=== PATIENT | male | born 1995 | race Caucasian/White ===

== ENCOUNTER 2019-06-27 11:52 | Emergency (ER) | payer OTHER, SELFPAY ==
[2019-06-27 12:02] VITALS: BP 118/68; PULSE 77; RESP 16; TEMP 36.8; O2SAT 98
[2019-06-27] MEDS: Tetracaine 0.5% 4 ML BTL (12:10)
--- NOTE | 2019-06-27 12:11 | W.ED.GENAD ---
Discharge Plan Disposition Patient Disposition: HOME Condition: Stable Discharge Details Chief Complaint: EyeProblem Clinical Impression: Acute foreign body of right eye, Abrasion of cornea, right Primary Care Provider: None,None ED Provider: Felix Reid Home Meds and New Rx's Prescriptions: New erythromycin 5 mg/gram (0.5 %) ointment 0.5 inch OP TID 7 Days Qty: 3.5 RF: 0 Discharge Instructions Instructions: Corneal Abrasion (ED) Additional Instructions: if pain continues on Saturday call [facility] for an appointment [phone] if you have severe worsening of pain return to the emergency department Medical Decision Making 24 yo males comes in with right eye discomfort since last night. Doesn't remember any known trauma or foreignb odies but continued to have discomfort and eye tearing since so came here. no periorbital swelling, redness, perrl,eomi without pain and no deep eye pain. He has no significant conjunctival injection, no d/c. He did have a small 1mm foreign body when upper eyelid was flipped and I removed with q tip. He also has a corneal abrasion that is 1mm on the conjunctiva at 9 oclock on flourescein staining, no hyphema or iritis. Will start on erythromycin ointment and advised f/u with [facility] if not better by Saturday Differential Diagnosis corneal abrasion foreign body HPI General Mode of arrival: ambulatory. Date/Time Provider Initiated Documentation: 06/27/19 11:55. Limitations to Documentation: no limitations. Information obtained by: patient. History of Present Illness 24 year old M presents to the emergency department with the chief complaint of right eye discomfort, described as moderate, Quality is described as aching, Patient started experiencing this day(s) (1) and it has been constant. No relieving factors improve symptom(s), No exacerbating factors reported . Related Data Home Medications Medication Instructions Recorded Confirmed erythromycin 0.5 inch OP TID 7 Days #3.5 gm 06/27/19 Previous Rx's Medication Instructions Recorded erythromycin 0.5 inch OP TID 7 Days #3.5 gm 06/27/19 Allergies Allergy/AdvReac Type Severity Reaction Status Date / Time Penicillins Allergy Intermediate Hives Unverified 06/27/19 12:04 General Stated Complaint: EyeProblem WILLIAM: 4 Review of Systems Review of Systems All systems reviewed & are unremarkable except as noted in HPI and below Constitutional Denies chills, Denies fever(s) and Denies weakness Cardiovascular Denies chest pain and Denies dyspnea Respiratory Denies cough and Denies dyspnea Gastrointestinal Denies abdominal pain, Denies nausea and Denies vomiting Integumentary/Breasts Denies rash Neurologic Denies weakness PFSH Social History Smoking/Tobacco Use Status: Former Tobacco Use Alcohol Intake: never Drug use: Never Substance use type: does not use Exam Const General: no acute distress Orientation: alert HENMT Head: normal to inspection Ears: external ears normal General nose exam: external nose normal Mouth: moist mucous membranes Eyes Pupils: PERRL Neck Neck: normal visual inspection Resp Effort & Inspection: normal respiratory effort and able to speak in complete sentences Cardio Rate: regular rate Skin General skin exam: no rashes or lesions noted Neuro General: alert and oriented x3 Extrem General: normal to inspection Psych Mental Status: mental status grossly normal Course Vital Signs Temperature 36.8 C 06/27/19 12:02 Pulse 77 06/27/19 12:02 Respiratory Rate 16 06/27/19 12:02 Blood Pressure 118/68 06/27/19 12:02 Pulse Oximetry 98 06/27/19 12:02 Temperature 36.8 C 06/27/19 12:02 Temperature Source Skin 06/27/19 12:02 Pulse 77 06/27/19 12:02 Respiratory Rate 16 06/27/19 12:02 Respiratory Effort Non-Labored 06/27/19 12:02 Blood Pressure 118/68 06/27/19 12:02 Blood Pressure Position Sitting 06/27/19 12:02 Pulse Oximetry 98 06/27/19 12:02 Oxygen Delivery Method Room Air 06/27/19 12:02 Oxygen Flow Rate 0 06/27/19 12:02 Pain Level 6 06/27/19 12:02
[2019-06-27 12:26] VITALS: BP 122/64; PULSE 81; RESP 16; O2SAT 98
[2019-06-27] MEDS: Balanced Salt Solution 15 ML BTL (12:40)
[2019-06-27] MEDS: Fluorescein STRIPS 100/BOX 1 MG (12:40)
== END 2019-06-27 12:29 | disposition home or self-care (01) ==
PROVIDERS: Emergency Provider Emergency Medicine
DX: T15.01XA Foreign body in cornea, right eye, initial encounter (principal); S05.01XA Injury of conjunctiva and corneal abrasion without foreign body, right eye, initial encounter
CPT/HCPCS: 65220; 99283; 99281

== ENCOUNTER 2021-03-19 16:16 | Emergency (ER) | payer OTHER, SELFPAY ==
[2021-03-19] VITALS (8 sets, daily range): BP systolic 113–119; BP diastolic 60–62; PULSE 70–88; RESP 16–29; TEMP 36.6; O2SAT 97–99
--- NOTE | 2021-03-19 16:15 | RT.EKG_ITS ---
APPROVED REPORT Exam: Resting ECG Patient Location: E HR:82 bpm ECG Measurements Heart Rate 82 AXIS SC 146 P 51 QRSd 89 QRS 60 QT 363 T 47 QTc 423 Conclusion Sinus rhythm...normal P axis, V-rate 60- 99
--- NOTE | 2021-03-19 16:30 | DI.CT_ITS ---
Exam(s) CT HEAD WO EXAM: CT HEAD WO CLINICAL HISTORY: Hx of Right sided weakness,. TECHNIQUE: Imaging Protocol: Axial computed tomography images with coronal and sagittal reformatted images were created and reviewed COMPARISON: No exams were available for comparison FINDINGS: Ventricles and Extra axial spaces: Normal in size and morphology for the patient's age. Hemorrhage: None. Cerebral parenchyma: Normal. Midline shift: None. Brainstem/Cerebellum: Normal. Calvarium: Normal. Visualized Paranasal sinuses/Mastoids: Clear. Soft Tissues: Unremarkable. IMPRESSION: No acute intracranial process. RADIATION DOSE DELIVERED: 675.03mGy.cm Total DLP DATA REPOSITORY: All CT scans at this facility are submitted to the National Radiology Data Registry (NRDR) Dose Index Registry (DIR) with the [employer] (ACR). RADIATION OPTIMIZATION: All CT scans at this facility use at least one of these dose optimization te chniques: automated exposure control; mA and/or kV adjustment per patient size (includes targeted exa ms where dose is matched to clinical indication); or iterative reconstruction.
--- NOTE | 2021-03-19 16:32 | W.ED.GENAD ---
Discharge Plan Disposition Patient Disposition: HOME Condition: Stable Discharge Details Clinical Impression: Alcohol intoxication, Weakness Primary Care Provider: None,None ED Provider: Zabrina Rosas Home Meds and New Rx's Prescriptions: No Action No Known Home Meds RF: 0 Discharge Instructions Instructions: Alcohol Intoxication (ED), Weakness (ED) Additional Instructions: Follow up with primary care provider in 3-5 days. Return to ED sooner if any worsening or concerns. Increase oral fluids. Try to abstain from your alcohol use. Stay with someone that can monitor mental status. Please return to the ED for any recurrent episodes of one-sided weakness, slurred speech or any concerns. Referrals: Corie Nguyen [Emergency Nurse] - Discharge Data Discharge Date/Time-TO BE ENTERED AT DEPARTURE: 03/19/21 17:37 Medical Decision Making 64-cnbt-liy-year-old presents to the ER chief complaint of right-sided weakness slurred speech which occurred approximately 2 hours ago while sitting on side of the bed. He states that he was having a conversation when he noticed his right side of his body a week slurred speech and he slid down to the floor. He denies hitting his head no headache no back pain no neck pain. He does endorse alcohol today including beer and liquor he also he also endorses marijuana. No other illicit drug. He is alert and oriented x4 upon arrival he is complaining of some left-sided chest pain. No focal neuro deficits noted pupils are PERRLA 5 mm bilaterally sluggish to light light. Middleware Solutions Architect are equal bilaterally no arm drift no facial droop. At this time work-up ordered including CBC, CMP, urinalysis, UDS, ethyl alcohol level, CT head without contrast. TECHNIQUE: Imaging protocol: Computed tomography of the head without contrast. COMPARISON: No relevant prior studies available. FINDINGS: Brain: Normal. No hemorrhage. Unremarkable white matter. No mass effect. Cerebral ventricles: The ventricular system is normal in size and distribution. There is a normalvariant cavum septum pellucidum. Bones/joints: Unremarkable. No acute fracture. Paranasal sinuses: Visualized sinuses are unremarkable. No fluid levels. Mastoid air cells: Visualized mastoid air cells are well aerated. Soft tissues: Unremarkable. IMPRESSION: Negative for acute intracranial pathology. Thank you for allowing us to participate in the care of your patient. Dictated and Authenticated by: Meliton Spicer MD CBC largely within normal limits no leukocytosis, CMP also largely within normal limits. alcohol level 244.5. UDS positive for THC no other illicit drugs. Discussed CT results with patient and family who verbalized understanding. Patient remained alert and oriented x4 with no focal neuro deficits upon reevaluation. At this time I do believe that symptoms are caused from the excessive alcohol use. Informed by staffing mgr that patient was also drinking heavily yesterday. I did encourage him to abstain from alcohol use for the rest of the day and tomorrow and to stay with somebody to monitor his mental status. Discuss strict return instructions instructed to return if any other episodes or concerns. Patient and family verbalized understanding at this time. This text was generated using [email or web address] system, please disregard any oddities of phrase or misspellings. HPI General Mode of arrival: ambulatory. Date/Time Provider Initiated Documentation: 03/19/21 16:17. Limitations to Documentation: altered mental status (Alcohol intoxication). Information obtained by: patient and family (Mom). HPI Narrative: 20-fexn-hls-year-old presents to the ER chief complaint of right-sided weakness slurred speech which occurred approximately 2 hours ago while sitting on side of the bed. He states that he was having a conversation when he noticed his right side of his body a week slurred speech and he slid down to the floor. He denies hitting his head no headache no back pain no neck pain. He does endorse alcohol today including beer and liquor he also he also endorses marijuana. No other illicit drug. He is alert and oriented x4 upon arrival he is complaining of some left-sided chest pain. No focal neuro deficits noted pupils are PERRLA 5 mm bilaterally sluggish to light light. Middleware Solutions Architect are equal bilaterally no arm drift no facial droop. Related Data Home Medications Medication Instructions Recorded Confirmed Unknown [No Known Home Meds] 03/19/21 03/19/21 Allergies Allergy/AdvReac Type Severity Reaction Status Date / Time Penicillins Allergy Intermediate Hives Unverified 03/19/21 16:30 General Stated Complaint: CVA/TIA WILLIAM: 2 Review of Systems Narrative: Constitutional: Negative for weight loss, alert and oriented, well groomed, normal body habitus, appears comfortable. Patient does appear intoxicated. HEENT: Denies headaches, blurry vision, nasal discharge, sore throat, trouble swallowing. Chest: Denies palpitations, irregular rhythm, hypertension. Positive left-sided chest pain. Respiratory: Denies Shortness of breath, cough, hemoptysis. GI: Denies abdominal pain, nausea, vomiting, diarrhea, constipation. : Denies dysuria, hematuria, flank pain, rectal bleeding. Neuro: Denies dizziness, blurry vision, syncope, headache or facial numbness. Reports right-sided weakness slurred speech approximately 2 hours ago which has since somewhat resolved. Hematologic: Denies easy bruising, intolerance to heat or cold, hair loss. [facility] Social History Smoking/Tobacco Use Status: Current every day Tobacco Type: cigarettes Smoking risk assessment performed?: Yes Alcohol Intake: current Alcohol Intake frequency: a few times a week Alcohol type: beer and hard liquor Drug use: Occasionally Substance use type: does not use and marijuana Exam Narrative Exam Narrative: Constitutional: Alert and oriented x3. Appears stated age. Normal body habitus. Head: Normocephalic, no trauma. Eyes: Pupils PERRLA, pupils 5 mm bilaterally sluggish, Red reflex noted, EOM's intact. Slight vertical nystagmus. Eyelids symmetrical without lesions, discharge, or swelling. ENT: Bilateral TM's WNL, no hemotympanum bilaterally, external ear normal to inspection, no mastoid TTP, swelling, or erythema, Nasal turbinates WNL, no nasal discharge. Normal dentition, Posterior pharynx WNL, no exudate. Chest: RRR, Normal S1, S2, distal pulses intact. Resp: Lungs clear to auscultation bilaterally, no wheezes, rales, or rhonchi. Abdomen: Soft, nondistended nontender to palpation all 4 quadrants. Musculoskeletal: Unable to assess gait, 5/5 strength to all four extremities. Skin: No suspicious rashes or lesions. Capillary refill less than 2 sec. Neurologic: Cranial nerves II-XII intact. Alert and oriented x 3. No facial droop, slight slurred speech. Intoxicated, shade matcher are equal bilaterally no pronator drift. Intact dorsal pedal flexion and extension. Hematologic/Lymphatic: No ecchymosis, no lymphadenopathy. Course Vital Signs Vital signs: Vital Signs Temperature 36.6 C 03/19/21 16:22 Pulse 82 03/19/21 16:22 Respiratory Rate 16 03/19/21 16:22 Blood Pressure 119/60 03/19/21 16:22 Pulse Oximetry 99 03/19/21 16:22 Temperature 36.6 C 03/19/21 16:22 Temperature Source Skin 03/19/21 16:22 Pulse 82 03/19/21 16:22 Respiratory Rate 16 03/19/21 16:22 Respiratory Effort Non-Labored 03/19/21 16:22 Blood Pressure 119/60 03/19/21 16:22 Blood Pressure Position Supine 03/19/21 16:22 Pulse Oximetry 99 03/19/21 16:22 Pain Level 0 03/19/21 16:22
[2021-03-19 16:40] LABS: Abs Immature Grans 0.04 10^3/uL (0.0-0.06); Absolute Basophil Count 0.05 10^3/uL (0.0-0.2); Absolute Eosinophil Count 0.12 10^3/uL (0.0-0.7); Absolute Lymphocyte Count 3.01 10^3/uL (1.2-3.4); Absolute Monocyte Count 0.51 10^3/uL (0.1-0.8); Absolute Neutrophil Count 4.65 10^3/uL (1.2-6.7); Basophils % 0.6; Eosinophils % 1.4; HCT 44.1 % (40.0-50.0); HGB 14.8 g/dL (13.5-17.5); Immature Grans % 0.5; Lymphocytes % 35.9; MCHC 33.6 % (32.0-36.0); MCV 89.5 fL (80-95); Monocytes % 6.1; Neutrophils % 55.5; Nucleated RBC 0 %; Platelet Count 334 10^3/uL (130-400); RBC 4.93 10^6/uL (4.36-5.78); RDW 11.7 % (11.8-14.1); WBC 8.38 10^3/uL (4.4-10.8)
[2021-03-19] MEDS: Normal Saline 1,000 ML 1000 ML IV (16:43)
[2021-03-19 16:50] LABS: Prothrombin Time 9.9 sec (9.3-11.0)
[2021-03-19 16:54] LABS: ALT 31 U/L (16-63); AST 18 U/L (15-37); Albumin 4.2 g/dL (3.4-5.0); Alkaline Phosphatase 82 U/L (46-116); Anion Gap 9.9 mmol/L (3-11); BUN 13 mg/dL (7-18); Bilirubin, Total 0.3 mg/dL (0.2-1.0); CO2 29.1 mmol/L (21.0-32.0); CREATININE 1.1 mg/dL (0.70-1.30); Calcium 8.8 mg/dL (8.5-10.1); Chloride 105 mmol/L (98-107); ETHANOL BLOOD 244.5 mg/dL (<3); Glucose 91 mg/dL (74-106); Magnesium 2.1 mg/dL (1.8-2.4); Potassium 3.9 mmol/L (3.5-5.1); Sodium 144 mmol/L (136-145); Total Protein 8.1 g/dL (6.4-8.2)
[2021-03-19 16:55] LABS: Troponin I < 0.05 ng/mL (<0.06)
--- NOTE | 2021-03-19 16:58 | DI.VRAD_ITS ---
PROCEDURE INFORMATION: Exam: CT Head Without Contrast Exam date and time: 03/19/2021 4:32 PM Age: 25 years old Clinical indication: Weakness, extremity; Right TECHNIQUE: Imaging protocol: Computed tomography of the head without contrast. COMPARISON: No relevant prior studies available. FINDINGS: Brain: Normal. No hemorrhage. Unremarkable white matter. No mass effect. Cerebral ventricles: The ventricular system is normal in size and distribution. There is a normal-variant cavum septum pellucidum. Bones/joints: Unremarkable. No acute fracture. Paranasal sinuses: Visualized sinuses are unremarkable. No fluid levels. Mastoid air cells: Visualized mastoid air cells are well aerated. Soft tissues: Unremarkable. IMPRESSION: Negative for acute intracranial pathology. Dictated and Authenticated by: Meliton Hays MD. Ordering:KHAI Gerber MD
[2021-03-19 17:00] LABS: Bilirubin Negative (Negative); Blood Negative (Negative); Clarity Clear (Clear); Glucose Negative (Negative); Ketones Negative (Negative); Leukocyte Esterase Negative (Negative); Nitrite Negative (Negative); Urobilinogen 0.2 EU/dL (Up TO 0.2); pH 5.5 (5-8)
[2021-03-19 17:11] LABS: *AMPHETAMINES SCREEN URINE Negative (Negative); *BARBITURATES SCREEN URINE Negative (Negative); *BENZODIAZEPINES SCREEN URINE Negative (Negative); Cannabinoids THC Positive (Negative); Cocaine Screen,Urine Negative (Negative); METHADONE URINE SCREEN Negative (Negative); OPIATES URINE SCREEN Negative (Negative)
[2021-03-19 17:12] LABS: Tricyclic Antidepressants Negative (Negative)
== END 2021-03-19 17:37 | disposition home or self-care (01) ==
PROVIDERS: Emergency Provider Registered Nurse Emergency
DX: F10.120 Alcohol abuse with intoxication, uncomplicated (principal); Y90.8 Blood alcohol level of 240 mg/100 ml or more; R53.1 Weakness; R47.81 Slurred speech
CPT/HCPCS: 36415; 36416; 80053; 80307; 82962; 93005; 96360; 99285; 70450; 80320; 81003; 83735; 84484; 85025; 85610; 93010; 99284

== ENCOUNTER 2021-03-28 17:31 | Outpatient (REF) | payer OTHER, SELFPAY ==
[2021-03-29 10:53] LABS: HIV-1/2 Ag & Ab Screen Negative (Negative)
[2021-03-29 11:14] LABS: Hepatitis C Ab w Rflx HCV PCR Negative (Negative)
[2021-03-29 11:56] LABS: Syphilis Serology (RPR) Negative (Negative)
[2021-03-29 15:01] LABS: Chlamydia Result Negative (Negative); GC Result Negative (Negative)
== END 2021-03-28 17:32 | disposition home or self-care (01) ==
LOC: NCHCN 17:31
PROVIDERS: Visit Provider Physician Assistant
DX: Z11.3 Encounter for screening for infections with a predominantly sexual mode of transmission (principal); Z11.4 Encounter for screening for human immunodeficiency virus [HIV]; Z11.59 Encounter for screening for other viral diseases
CPT/HCPCS: 86803; 87389; 87491; 87591; 86592

== ENCOUNTER 2022-06-30 17:35 | Emergency (ER) | payer SELFPAY ==
[2022-06-30] VITALS (8 sets, daily range): BP systolic 160–186; BP diastolic 89–105; PULSE 115–130; RESP 11–26; TEMP 37.2–37.3; O2SAT 95–98
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
[2022-06-30] MEDS: Normal Saline 1,000 ML 1000 ML IV (17:30)
[2022-06-30] MEDS: Etomidate 20 MG/10 ML VIAL IVP (17:33)
[2022-06-30] MEDS: Succinylcholine 200 MG/10 ML VIAL 20 MG IVP (17:33)
[2022-06-30] MEDS: PROPOFOL 1,000 MG/100 ML BTL 4 MG (17:35)
[2022-06-30] MEDS: Propofol 200 MG/20 ML VIAL IVP (17:35)
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
[2022-06-30 17:53] LABS: Abs Immature Grans 0.09 10^3/uL (0.0-0.06); HCT 42.2 % (40.0-50.0); HGB 14.7 g/dL (13.5-17.5); MCH 30.7 pg (27.0-33.0); MCHC 34.8 % (32.0-36.0); MCV 88 fL (80-95); MPV 9.1 fL (8.0-11.0); Platelet Count 399 10^3/uL (130-400); RBC 4.79 10^6/uL (4.36-5.78); RDW-SD 38.9 fL; WBC 12.64 10^3/uL (4.4-10.8)
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
[2022-06-30] MEDS: Lactated Ringers 1,000 ML 1000 ML IV (17:55)
--- NOTE | 2022-06-30 18:00 | RT.EKG_ITS ---
APPROVED REPORT Exam: Resting ECG Reason for Exam: electrolyte abnl Patient Location: E HR:99 bpm ECG Measurements Heart Rate 99 AXIS ME 146 P 62 QRSd 86 QRS 48 QT 344 T 43 QTc 441 Conclusion Sinus rhythm...normal P axis, V-rate 60- 99
[2022-06-30] MEDS: fentaNYL 100 MCG/2 ML VIAL IVP ×2 (18:02→18:29)
[2022-06-30] MEDS: fentaNYL 100 MCG/2 ML VIAL (18:05)
[2022-06-30 18:06] LABS: PTT Activated 21.1 sec (21.0-27.5); Prothrombin Time 10.2 sec (9.3-11.0)
[2022-06-30 18:07] LABS: ALT 37 U/L (16-63); AST 37 U/L (15-37); Albumin 3.1 g/dL (3.4-5.0); Alkaline Phosphatase 74 U/L (46-116); Anion Gap 13.1 mmol/L (3-11); BUN 8 mg/dL (7-18); Bilirubin, Total 0.4 mg/dL (0.2-1.0); CO2 22.9 mmol/L (21.0-32.0); CREATININE 1.1 mg/dL (0.70-1.30); Chloride 107 mmol/L (98-107); Glucose 174 mg/dL (74-106); Magnesium 1.5 mg/dL (1.8-2.4); Potassium 3.1 mmol/L (3.5-5.1); Sodium 143 mmol/L (136-145); Total Protein 6.2 g/dL (6.4-8.2)
[2022-06-30 18:20] LABS: Absolute Neutrophil Count 5.06 10^3/uL (1.2-6.7)
[2022-06-30] MEDS: MIDAZOLAM 50 MG in Normal Saline 90 ML IV (18:20)
[2022-06-30 18:21] LABS: Absolute Basophil Count 0.13 10^3/uL (0.0-0.2); Absolute Eosinophil Count 0.38 10^3/uL (0.0-0.7); Absolute Lymphocyte Count 6.19 10^3/uL (1.2-3.4); Absolute Monocyte Count 0.88 10^3/uL (0.1-0.8); Atypical Lymphocytes % 3; Diff Comment Manual Differential; RBC Morphology Normal
[2022-06-30 18:22] LABS: BE -3 mmol/L (-2-3); HCO3 23 mmol/L (22-26); pCO2 49 mmHg (35-45); pH 7.29 (7.35-7.45); pO2 102 mmHg (80-105); sO2 97 % (95-98); tCO2 21 mmol/L (23-27)
[2022-06-30 18:25] LABS: FIO2 100 %; Site Right Radial
[2022-06-30 18:37] LABS: Source Nasal/Nares
[2022-06-30] MEDS: PROPOFOL 1,000 MG/100 ML BTL 38.2 MG (18:49)
[2022-06-30] MEDS: Midazolam 2 MG/2 ML VIAL 4 MG IVP (18:53)
[2022-06-30 19:09] LABS: COVID-19 PCR Negative (Negative)
--- NOTE | 2022-06-30 19:24 | NUR.NOTE ---
Nursing Note: Unable to insert og tube due to swelling. Potassium and Mag given to DART to give in transit due to existing lines being full. Report given to [facility] team, nursing report also given to Brennen at [facility] SICU
== END 2022-06-30 19:13 ==
LOC: ER 18:58
PROVIDERS: Emergency Provider Emergency Medicine
DX: T21.31XA Burn of third degree of chest wall, initial encounter (principal); T22.30XA Burn of third degree of shoulder and upper limb, except wrist and hand, unspecified site, initial encounter; T20.26XA Burn of second degree of forehead and cheek, initial encounter; T31.33 Burns involving 30-39% of body surface with 30-39% third degree burns; X01.8XXA Other exposure to uncontrolled fire, not in building or structure, initial encounter
CPT/HCPCS: 31500; 51702; 71045; 80053; 82805; 87635; 93005; 96361; 96365; 96366; 96375; 99291; 36600; 83735; 85025; 85610; 85730; 93010; J2250; J2704; J3010; J3490